=== PATIENT | male | born 1985 ===

== ENCOUNTER 2019-09-13 10:03 | Emergency (ER) | payer OTHER ==
[~2019-09-13] VITALS: Ht 180.3 cm; Wt 82.6 kg
== END 2019-09-13 12:57 | disposition home or self-care (01) ==
LOC: ER 10:03
DX: I16.0 Hypertensive urgency (principal); I10 Essential (primary) hypertension

== ENCOUNTER 2021-06-17 14:36 | Inpatient (IN) | payer OTHER ==
[~2021-06-17] VITALS: Ht 180.3 cm; Wt 86.2 kg
[2021-06-17] MEDS ORDERED: COZAAR25 MG PO (15:23)
[2021-06-17] MEDS ORDERED: LIPITOR40 M1 (15:23)
[2021-06-17] MEDS ORDERED: TENORMIN25 MG (15:24)
--- NOTE | 2021-06-17 15:25 | NUR ---
PACIENTE MASCULINO ALERTA Y ORIENTADO X3, REFIERE TENER DOLOR ABDOMINAL CONSTANTEMENTE DESDE LA MADRUGADA.
--- NOTE | 2021-06-17 16:22 | NUR ---
MS HYLTON ORIENTA PTE SOBRE TX MEDICO EL CUAL REFIERE ENTENDER.SE LE EXTRAEN MUESTRAS BAJO MEDIDAS ASEPTICAS,SE CANALIZA Y SE ADMINISTRA MEDICAMENTO PREM ORDEN MEDICA.SE NOTIFICA CT PENDIENTE.
== END 2021-06-19 12:12 | disposition home or self-care (01) | DRG 343 ==
LOC: ER 14:36 → SURH 23:48
PROVIDERS: ADMIT Surgery; ATTEND Surgery
PROC: BW21YZZ Computerized Tomography (CT Scan) of Abdomen and Pelvis using Other Contrast (ICD-10-PCS; 2021-06-17)
PROC: 0DTJ0ZZ Resection of Appendix, Open Approach (ICD-10-PCS; principal; 2021-06-18 07:00)
DX: K35.890 Other acute appendicitis without perforation or gangrene (principal); E78.49 Other hyperlipidemia; Z20.822 Contact with and (suspected) exposure to COVID-19

== ENCOUNTER 2021-12-08 10:22 | Emergency (ER) | payer OTHER ==
[~2021-12-08] VITALS: Ht 180.3 cm; Wt 88.5 kg
[~2021-12-08 10:22] MED LIST: COZAAR25 MG PO; LIPITOR40 M1; TENORMIN25 MG
[2021-12-08] MEDS ORDERED: ROSUVASTATIN CAL5 MG PO (10:30)
== END 2021-12-08 12:46 | disposition home or self-care (01) ==
LOC: ER 10:22
DX: J02.8 Acute pharyngitis due to other specified organisms (principal); B97.89 Other viral agents as the cause of diseases classified elsewhere; Z20.822 Contact with and (suspected) exposure to COVID-19; R51.9 Headache, unspecified